=== PATIENT | male | born 1940 | race Two or more races ===

== ENCOUNTER 2024-04-07 09:10 | Day surgery (SDC) | payer OTHER ==
[~2024-04-07] VITALS: Ht 175.3 cm; Wt 74.8 kg
[~2024-04-07 09:10] MED LIST: GABA-1308 PO; LEVO25TA6 PO; PIO30T PO; SIMV10TA20 PO; TAMS0.4C39 PO
--- NOTE | 2024-04-07 10:31 | DVHHP2 ---
GI H&P Pre-Op Assessment Date: 04/07/24 Chief complaint: dysphagia. HPI: per clinic note Past medical history: per clinic note Past surgical history: per clinic note Family history: per clinic note Physical exam: General: NAD, AAOX3 HEENT: PERRL, no scleral icterus, normal hearing, gums without lesions or bleeding, oropharynx clear without erythema or exudate. Neck: Supple without enlargement of the thyroid, or lymphadenopathy. Chest: Normal size and shape, no tenderness, lung fall clear to auscultation and percussion, nonlabored breathing. Heart: RRR, no murmur Abdomen: non-distended, no tenderness to palpation, +BS, no hepatosplenomegaly Extremities: no edema Neurological: CN II-XII intact, sensation intact in all extremities, 5+ strength in all extremities Skin: No rashes, No jaundice Assessment: - dysphagia Plan: - EGD - Risks (bleeding, infection, perforation, reaction to sedation medications and cardiopulmonary arrest) and benefit of the procedure were explained to patient. Patient agrees to undergo the procedure. ERWIN NJ MD Apr 07, 2024 10:31
[2024-04-07] MEDS ORDERED: fentaNYL CITRATE 100 MCG/2 ML VL ONE (10:39)
[2024-04-07] MEDS ORDERED: PROPOFOL 10 MG/ML 20 ML IV ONE (10:39)
[2024-04-07 10:56] VITALS: PULSE 73; RESP 19; TEMP 98.2; O2SAT 100
--- NOTE | 2024-04-07 10:58 | DVHOP2 ---
Operative Report DATE OF OPERATION: 04/07/24 PROCEDURE: Upper Endoscopy. PREOPERATIVE INDICATION: The patient is a 84 -year-old male undergoing endoscopy for dysphagia. POSTOPERATIVE DIAGNOSES: 1. Mild gastritis. 2. 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 One is at 20-27 cm and the second one is at 33-37 cm (above the GEJ). PROCEDURE PERFORMED BY: Devin Jarvis SCOPE: Olympus videoendoscope. ASA CLASS: 3 PREOPERATIVE MEDICATIONS: MAC with Dr Webber PROCEDURE IN DETAIL: After obtaining an informed consent, the patient was placed on left lateral decubitus position. The patient was then sedated with the above medications. A bite block was placed between his teeth. The endoscope was then passed through the oropharynx, into the esophagus, and through the stomach and pylorus up to the second and third part of the duodenum. The duodenum was normal in appearance. There was mild gastritis. The GEJ was at 37 cm. 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 One is at 20-27 cm and the second one is at 33-37 cm (above the GEJ). Biopsies of the esophageal masses were obtained. The endoscope was then withdrawn. The patient tolerated the procedure well without difficulty. COMPLICATIONS : None SPECIMENS: Esophageal masses biopsies DISPOSITION: D/C to home PLAN: 1. Await for biopsy result DEVIN JARVIS MD Apr 07, 2024 10:58
--- NOTE | 2024-04-07 10:58 | DVHDS2 ---
Physician Discharge Progress N Final Diagnosis: esophageal masses, gastritis Operations or Procedures: Operations or Procedures EGD with biopsy Condition on Discharge: Good Disposition: Home Discharge Instructions: Diet: Regular Activity: No Restrictions, As Tolerated Medications: resume with previous home medications Follow Up Care: Discharge Statement: "Patient was advised to return to the ER or call 911 if any headaches, dizziness, shortness of breath, chest pain, abdominal pain, bleeding, fevers, or worsening of medical condition. Patient was counseled about treatment plan, medications, possible side effects, patientverbalized understanding. All questions were answered to the best of my ability. This discharge took greater then 30 minutes in planning, reviewing do cumentation, counseling the patient, and discussing with other team members." ERWIN NJ MD Apr 07, 2024 10:58
[2024-04-07 11:40] VITALS: BP 123/82; PULSE 83; RESP 20; O2SAT 97
== END 2024-04-07 11:50 | disposition home or self-care (01) ==
LOC: GI 09:10
PROVIDERS: ATTEND Internal Medicine Gastroenterology
DX: C15.3 Malignant neoplasm of upper third of esophagus (principal); R13.10 Dysphagia, unspecified; K29.70 Gastritis, unspecified, without bleeding; K22.9 Disease of esophagus, unspecified; E11.9 Type 2 diabetes mellitus without complications; E78.5 Hyperlipidemia, unspecified; I10 Essential (primary) hypertension; E03.9 Hypothyroidism, unspecified; N40.0 Benign prostatic hyperplasia without lower urinary tract symptoms; Z87.891 Personal history of nicotine dependence; Z79.84 Long term (current) use of oral hypoglycemic drugs; Z90.49 Acquired absence of other specified parts of digestive tract; Z79.890 Hormone replacement therapy
CPT/HCPCS: 43239; 82962; 88305; 88342; J2704; J3010; J7030